=== PATIENT | female | born 1960 | race Caucasian/White ===

== ENCOUNTER 2021-06-07 05:29 | Emergency (ER) | payer OTHER, SELFPAY ==
--- NOTE | 2021-06-07 05:37 | DI.RAD.S_ITS ---
PROCEDURE: XR TOE RT MIN 2V INDICATIONS: toe injury, fracture vs. dislocation? TECHNIQUE: 3 views of the right 5th toe(s) acquired. COMPARISON: None. FINDINGS: Bones: Mildly displaced fracture of the right 5th proximal phalange. Soft tissues: No suspicious soft tissue densities. IMPRESSION: Right 5th proximal phalange fracture. Dictated by: Norma Calvin MD, PhD on 06/07/2021 at 8:09 Approved by: Norma Calvin MD, PhD on 06/07/2021 at 8:10
--- NOTE | 2021-06-07 05:38 | ED_ITS ---
HPI - Extremity Injury (Lower) General Chief Complaint: Extremity Injury, Lower Stated Complaint: little toe/right foot feels broken Time Seen by Provider: 06/07/21 05:37 History of Present Illness HPI Narrative: 60-year-old female nonsmoker with noncontributory medical history presents with family in the chief complaint of an injury to her right 5th toe just prior to arrival. She was walking and caught her pinky toe of her right foot on a chair at home and now has pain and questions whether not it may be fractured. She states it hurts to walk and improves with rest. She denies any numbness, tingling or weakness. She denies any history of the same. She is otherwise well and free of complaint Review of Systems Review of Systems Narrative: GENERAL: Denies chills, fatigue, malaise, fever, sweats. HEENT: Denies sinus pain, ear pain, sore throat, difficulty swallowing, dizziness. RESPIRATORY: Denies dyspnea, cough, wheezing, hemoptysis, sputum. CARDIOVASCULAR: Denies chest pain, palpitations, orthopnea, edema, GASTROINTESTINAL: Denies nausea, vomiting, abdominal pain, diarrhea, constipation, melena. : Denies dysuria, frequency, incontinence, hematuria, urinary retention. MUSCULOSKELETAL: See HPI SKIN: Denies rash, skin lesions, or other NEUROLOGIC: Denies weakness, headache, numbness, change in speech, confusion, seizures, incoordination. PSYCHIATRIC: No concerning psychosocial issues. 12 point review of systems is negative except for those stated above Patient History Social History Smoking Status: Former smoker Exam Narrative Exam Narrative: GEN: AOx3 and in mild distress EYES: Pupils are equal, round, and reactive to light and accommodation. Extraoccular muscles are intact bilaterally. There is no subconjunctival hemorrhage or exudate. CHEST: Lungs are clear to auscultation bilaterally and free of wheezes, rales, or rhonchi. Heart rate is regular rhythm, there are no murmurs, clicks, rubs, or gallops. There is no chest wall tenderness. ABD: Abdomen is soft and nontender. There is no guarding or rebound. Bowel sounds are normal in all 4 quadrants. There is no mass or organomegaly. EXT: Right 5th toe painful, minimally swollen and erythematous, no obvious break in the skin, laceration or abrasion. This is closed, isolated and neurovascularly intact Full painless ROM of all extremities with no loss of sensation or strength. SKIN: Warm, pink, and dry. No erythema or rash Initial Vital Signs Initial Vital Signs: Vital Signs Temperature 98.2 F 06/07/21 05:45 Pulse Rate 90 06/07/21 05:45 Respiratory Rate 18 06/07/21 05:45 Blood Pressure 144/76 H 06/07/21 05:45 Pulse Oximetry 96 06/07/21 05:45 Course Orders Ordered: ED Orders 06/07/21 05:37 XR toe RT min 2V Stat Vital Signs Vital signs: Vital Signs - 8 hr 06/07/21 05:45 Temperature 98.2 F Pulse Rate 90 Respiratory Rate 18 Blood Pressure 144/76 H Pulse Oximetry 96 MDM - Extremity Injury (Lower) Imaging Data Extremity x-ray #1: Radiologist's Impression: Minimally displaced toe fracture Discharge Plan Departure Patient Disposition: Home Clinical Impression: Fracture of toe Instructions: DI for Toe Fracture Activity Restrictions/Additional Instructions: *You have been diagnosed with [right 5th toe fracture] *What to do: *Please continue to take your regular medications as directed. [ ] New medication prescriptions sent to your pharmacy: [ ] [ ] New medication written as a paper prescription [ ] No new medications given *Please follow up with your primary care provider in 2-3 days, call for an appointment. Let them know you were seen in the Emergency Department and that we ask that you be seen in follow up. We will electronically transmit a record of today's note if your PCP is in our system *If you do not have a primary care provider please contact the [facility] Resource line at [phone]. They will ask some questions about your medical history and help get you set up with a doctor in the community. *Return to Emergency Department if you should have any new, worsening or concerning symptoms, such as [fever greater than 101 F, shaking chills, worsening pain, persistent vomiting or other bothersome symptoms] Referrals: Nicolas Patel MD [Physician] -
[2021-06-07 05:45] VITALS: BP 144/76; PULSE 90; RESP 18; TEMP 36.8; O2SAT 96; BMI 28.8
== END 2021-06-07 05:55 | disposition home or self-care (01) ==
PROVIDERS: Emergency Provider Emergency Medicine
DX: S92.511A Displaced fracture of proximal phalanx of right lesser toe(s), initial encounter for closed fracture (principal); W22.03XA Walked into furniture, initial encounter
CPT/HCPCS: 73660; 99283